=== PATIENT | female | born 1960 | race Caucasian/White ===

== ENCOUNTER 2016-06-10 09:39 | Emergency (ER) | payer MEDICARE | END 2016-06-10 17:43 | disposition short-term general hospital (02) | LOC: ER 09:39 | DX: M54.10 Radiculopathy, site unspecified (principal); J45.909 Unspecified asthma, uncomplicated; I10 Essential (primary) hypertension; K21.9 Gastro-esophageal reflux disease without esophagitis; F32.9 Major depressive disorder, single episode, unspecified; I25.10 Atherosclerotic heart disease of native coronary artery without angina pectoris; F17.210 Nicotine dependence, cigarettes, uncomplicated; Z90.49 Acquired absence of other specified parts of digestive tract; Z90.710 Acquired absence of both cervix and uterus; Z87.442 Personal history of urinary calculi; Z87.440 Personal history of urinary (tract) infections; Z79.82 Long term (current) use of aspirin; Z79.02 Long term (current) use of antithrombotics/antiplatelets; Z79.899 Other long term (current) drug therapy; Z88.8 Allergy status to other drugs, medicaments and biological substances | CPT/HCPCS: 36415; 96361; 96374; 96375; 96376; J1100 ==

== ENCOUNTER → 2016-10-17 14:55 | Emergency (ER) | payer MEDICARE | END | disposition left against medical advice (07) | LOC: ER 14:55 | DX: Z53.21 Procedure and treatment not carried out due to patient leaving prior to being seen by health care provider (principal) ==

== ENCOUNTER 2016-11-24 22:23 | Emergency (ER) | payer MEDICARE | END 2016-11-24 23:30 | disposition home or self-care (01) | LOC: ER 22:23 | DX: R68.84 Jaw pain (principal); I10 Essential (primary) hypertension; I25.10 Atherosclerotic heart disease of native coronary artery without angina pectoris; E78.00 Pure hypercholesterolemia, unspecified; K21.9 Gastro-esophageal reflux disease without esophagitis; F17.200 Nicotine dependence, unspecified, uncomplicated; Z87.440 Personal history of urinary (tract) infections; Z79.82 Long term (current) use of aspirin; Z79.02 Long term (current) use of antithrombotics/antiplatelets; Z79.899 Other long term (current) drug therapy; Z88.8 Allergy status to other drugs, medicaments and biological substances | CPT/HCPCS: 96372; J0696 ==